=== PATIENT | male | born 1950 | race Caucasian/White ===

== ENCOUNTER → 2017-12-01 | Outpatient (CLI) | payer OTHER | LOC: GIMAGING 09:19 | PROVIDERS: ATTEND Family Medicine | DX: R06.02 Shortness of breath (principal); F17.210 Nicotine dependence, cigarettes, uncomplicated; I10 Essential (primary) hypertension; R91.8 Other nonspecific abnormal finding of lung field | CPT/HCPCS: 71046-PO ==

== ENCOUNTER → 2018-05-11 | Outpatient (CLI) | payer OTHER | LOC: GIMAGING 16:27 | PROVIDERS: ATTEND Registered Nurse | DX: S42.032A Displaced fracture of lateral end of left clavicle, initial encounter for closed fracture (principal) | CPT/HCPCS: 73000-PO ==